=== PATIENT | female | born 1950 | race Caucasian/White ===

== ENCOUNTER → 2017-02-23 | Day surgery (SDC) | payer MEDICARE, OTHER ==
[~2017-02-23] VITALS: Ht 162.6 cm; Wt 53.5 kg
[~2017-02-23] MED LIST: ACETAMINOPHEN 325 MG TAB PO PRN; ACETYLCHOLINE OPHTH SOLN 1% 2ML As Ordered ONE; AcetaZOLAMIDE 500 MG ER CAP PO ONE; BSS with VANC/TOB/EPI for EYE CASES IR ONE; CALCTAB28 PO; CENT1TAB PO; CYCLOPENTOLATE 2% OPHTH SOLN OS ONE; HEALON DUET (HEALON 10MG/ML 0.55ML & HEALON ENDOCOAT 30MG/ML 0.85ML) As Ordered ONE; KETOROLAC 0.5% OPHTH SOLN OS ONE; LIDOCAINE 1% SDV 5 ML VIAL As Ordered ONE; LIDOCAINE 4% INJ 5 ML AMP OS ONE; LIDOCAINE 4% INJ 5 ML AMP OU ONE; LIDOCAINE W/EPINEPHRINE 1% 20ML VIAL As Ordered ONE; MIDAZOLAM INJ 2 MG/2 ML VIAL (J2250) As Ordered ONE; MOXIFLOXACIN IN BSS 0.25MG/0.25ML INTRACAMERAL INJ (OR EYE ONLY)(J2280) As Ordered ONE; OFLOXACIN 0.3 % (OCUFLOX) OPTH SOL 5ML OS ONE; PHENYLEPHRINE 2.5% OPHTH SOL 2ML OS ONE; POVIDONE-IODINE 5% OPHTH PREP SOL 30ML As Ordered ONE; PROPARACAINE 0.5% OPHTH SOL 15ML OS PRN; TRIAMCINOLONE PRES FR 40 MG/ML 1ML(TRIESENCE)(OR EYE ONLY)(J3300 PER 1MG) As Ordered ONE; TRIMETHOBENZAMIDE 300 MG CAP PO PRN; TROPICAMIDE 1% OPHTH SOLN 2 ML OS ONE; VITA100037 PO; fentaNYL 100 MCG/2 ML INJECTION (J3010) As Ordered ONE
[2017-02-23 10:10] VITALS: BP 145/93
== END | disposition home or self-care (01) ==
LOC: M SDC 07:21
PROVIDERS: ATTEND Ophthalmology
DX: H26.9 Unspecified cataract (principal)
CPT/HCPCS: 66984; 67515; J2250; J2280; J3010; J3300; V2632

== ENCOUNTER 2017-08-16 11:13 | Day surgery (SDC) | payer MEDICARE, OTHER ==
[~2017-08-16] VITALS: Ht 162.6 cm; Wt 53.5 kg
[~2017-08-16 11:13] MED LIST changes: -ACETYLCHOLINE OPHTH SOLN 1% 2ML As Ordered ONE; -AcetaZOLAMIDE 500 MG ER CAP PO ONE; +CYCLOPENTOLATE 2% OPHTH SOLN 2ML BTL OD ONE; -CYCLOPENTOLATE 2% OPHTH SOLN OS ONE; -HEALON DUET (HEALON 10MG/ML 0.55ML & HEALON ENDOCOAT 30MG/ML 0.85ML) As Ordered ONE; -KETOROLAC 0.5% OPHTH SOLN OS ONE; -LIDOCAINE 1% SDV 5 ML VIAL As Ordered ONE; +LIDOCAINE 3.5 % 1ML OPHTH TOPICAL GEL OU ONE; -LIDOCAINE 4% INJ 5 ML AMP OS ONE; -LIDOCAINE 4% INJ 5 ML AMP OU ONE; -LIDOCAINE W/EPINEPHRINE 1% 20ML VIAL As Ordered ONE; -MIDAZOLAM INJ 2 MG/2 ML VIAL (J2250) As Ordered ONE; -MOXIFLOXACIN IN BSS 0.25MG/0.25ML INTRACAMERAL INJ (OR EYE ONLY)(J2280) As Ordered ONE; +OFLOXACIN 0.3 % (OCUFLOX) OPTH SOL 5ML OD ONE; -OFLOXACIN 0.3 % (OCUFLOX) OPTH SOL 5ML OS ONE; +PHENYLEPHRINE 2.5% OPHTH SOL 2ML OD ONE; -PHENYLEPHRINE 2.5% OPHTH SOL 2ML OS ONE; -POVIDONE-IODINE 5% OPHTH PREP SOL 30ML As Ordered ONE; +PROPARACAINE 0.5% OPHTH SOL 15ML OD PRN; -PROPARACAINE 0.5% OPHTH SOL 15ML OS PRN; -TRIAMCINOLONE PRES FR 40 MG/ML 1ML(TRIESENCE)(OR EYE ONLY)(J3300 PER 1MG) As Ordered ONE; -TRIMETHOBENZAMIDE 300 MG CAP PO PRN; -TROPICAMIDE 1% OPHTH SOLN 2 ML OS ONE; +TROPICAMIDE 1% OPHTH SOLN 2ML OD ONE; -VITA100037 PO; +VITA100067 PO; -fentaNYL 100 MCG/2 ML INJECTION (J3010) As Ordered ONE
[2017-08-16] MEDS ORDERED: LR 1,000 ML IV ONE (11:30)
[2017-08-16] MEDS ORDERED: TRIAMCINOLONE PRES FR 40 MG/ML 1ML(TRIESENCE)(OR EYE ONLY)(J3300 PER 1MG) As Ordered ONE (11:52)
[2017-08-16] MEDS ORDERED: MOXIFLOXACIN IN BSS 0.25MG/0.25ML INTRACAMERAL INJ (OR EYE ONLY)(J2280) As Ordered ONE (11:52)
[2017-08-16] MEDS ORDERED: LIDOCAINE 1% SDV 5 ML VIAL As Ordered ONE (11:52)
[2017-08-16] MEDS ORDERED: POVIDONE-IODINE 5% OPHTH PREP SOL 30ML As Ordered ONE (11:52)
[2017-08-16] MEDS ORDERED: HEALON DUET (HEALON 10MG/ML 0.55ML & HEALON ENDOCOAT 30MG/ML 0.85ML) As Ordered ONE ×2 (11:53→12:09)
[2017-08-16] MEDS ORDERED: ACETYLCHOLINE OPHTH SOLN 1% 2ML (MIOCHOL-E) As Ordered ONE (12:19)
[2017-08-16] MEDS ORDERED: fentaNYL 100 MCG/2 ML INJECTION (J3010) As Ordered ONE (12:48)
[2017-08-16] MEDS ORDERED: MIDAZOLAM INJ 2 MG/2 ML VIAL (J2250) As Ordered ONE (12:48)
[2017-08-16] MEDS ORDERED: AcetaZOLAMIDE 500 MG ER CAP As Ordered ONE (12:49)
[2017-08-16 12:50] VITALS: BP 129/95
[2017-08-16] MEDS ORDERED: LR 1,000 ML IV SCH (13:00)
[2017-08-16] MEDS ORDERED: ONDANSETRON 4MG/2ML VIAL (J2405) IV PRN (13:00)
[2017-08-16] MEDS ORDERED: TRIMETHOBENZAMIDE 300 MG CAP PO PRN (13:15)
[2017-08-16] MEDS ORDERED: KETOROLAC 0.5% OPHTH SOLN OD ONE (13:15)
[2017-08-16] MEDS ORDERED: AcetaZOLAMIDE 500 MG ER CAP PO ONE (13:15)
== END 2017-08-16 13:05 | disposition home or self-care (01) ==
LOC: M SDC 11:13
PROVIDERS: ATTEND Ophthalmology
DX: H25.9 Unspecified age-related cataract (principal)
CPT/HCPCS: 66984; J2250; J2280; J3010; J3300; V2632

== ENCOUNTER 2019-11-29 09:03 | Day surgery (SDC) | payer MEDICARE, OTHER ==
[~2019-11-29] VITALS: Ht 160 cm; Wt 50.7 kg
[~2019-11-29 09:03] MED LIST changes: -ACETAMINOPHEN 325 MG TAB PO PRN; -BSS with VANC/TOB/EPI for EYE CASES IR ONE; +CALC1TAB30 PO; -CYCLOPENTOLATE 2% OPHTH SOLN 2ML BTL OD ONE; +D 202000 PO; +FISH1000 PO; -LIDOCAINE 3.5 % 1ML OPHTH TOPICAL GEL OU ONE; +NAPR220C14 PO; +NS 1,000 ML IV ONE; -OFLOXACIN 0.3 % (OCUFLOX) OPTH SOL 5ML OD ONE; -PHENYLEPHRINE 2.5% OPHTH SOL 2ML OD ONE; +PRES10CA2 PO; -PROPARACAINE 0.5% OPHTH SOL 15ML OD PRN; -TROPICAMIDE 1% OPHTH SOLN 2ML OD ONE
[2019-11-29] MEDS ORDERED: propofoL 200 MG/20 ML VIAL As Ordered ONE (09:24)
[2019-11-29] MEDS ORDERED: LIDOCAINE 2% INJ 100 MG/5 ML SDV (FOR ANES.) As Ordered ONE (09:24)
--- NOTE | 2019-11-29 11:23 | ROOR ---
Patient Name: Abbie Ramirez Procedure Date: 11/29/2019 10:58 AM Date of : 1950 Age: 69 Room: [facility] Gender: Female Note Status: Finalized Procedure: Total Colonoscopy to Cecum Indications: Screening in patient at increased risk: Colorectal cancer in father 60 or older Providers: Alex Owens MD Referring MD: GIBRAN TOMAS JR, MD Requesting Provider: Medicines: Monitored Anesthesia Care Complications: No immediate complications. Procedure: Pre-Anesthesia Assessment: - The heart rate, respiratory rate, oxygen saturations, blood pressure, adequacy of pulmonary ventilation, and response to care were monitored throughout the procedure. The Colonoscope was introduced through the anus and advanced to the cecum, identified by appendiceal orifice and ileocecal valve. The colonoscopy was performed without difficulty. The patient tolerated the procedure well. The quality of the bowel preparation was excellent. Findings: The perianal and digital rectal examinations were normal. Non-bleeding internal hemorrhoids were found during retroflexion. The hemorrhoids were small and Grade I (internal hemorrhoids that do not prolapse). Multiple small and large-mouthed diverticula were found in the recto-sigmoid colon, sigmoid colon and descending colon. The exam was otherwise without abnormality on direct and retroflexion views. Impression: - Non-bleeding internal hemorrhoids. - Diverticulosis in the recto-sigmoid colon, in the sigmoid colon and in the descending colon. - The examination was otherwise normal on direct and retroflexion views. - No specimens collected. - The exam was otherwise normal to the cecum. Recommendation: - Patient has a contact number available for emergencies. The signs and symptoms of potential delayed complications were discussed with the patient. Return to normal activities tomorrow. Written discharge instructions were provided to the patient. - High fiber diet. - Discharge patient to home. - Continue present medications. - Repeat colonoscopy for symptoms only. - Return to referring physician. - The findings and recommendations were discussed with the patient's family. Alex Owens MD Alex Owens MD 11/29/2019 11:23:16 AM Electronically signed by Alex Owens MD Number of Addenda: 0 Note Initiated On: 11/29/2019 10:58 AM Estimated Blood Loss: Estimated blood loss: none.
[2019-11-29 11:40] VITALS: BP 120/72
== END 2019-11-29 11:52 | disposition home or self-care (01) ==
LOC: M OPP 09:03
PROVIDERS: ATTEND Internal Medicine Gastroenterology
DX: Z12.11 Encounter for screening for malignant neoplasm of colon (principal); Z80.0 Family history of malignant neoplasm of digestive organs; K64.0 First degree hemorrhoids; K57.30 Diverticulosis of large intestine without perforation or abscess without bleeding

== ENCOUNTER → 2021-03-19 | Outpatient (CLI) | payer MEDICARE, OTHER ==
[~2021-03-19] MED LIST changes: -NS 1,000 ML IV ONE
--- NOTE | 2021-03-19 12:36 | REP ---
INDICATION: PAIN COMPARISON: None. TECHNIQUE: 6 views right knee including standing AP view. FINDINGS: There is no evidence of acute fracture, dislocation, or intrinsic bone disease.There is no significant degenerative joint space narrowing. There is mild subchondral sclerosis and cystic change in the anterior aspect of the lateral femoral condyle. There is no radiographic evidence of a joint effusion. IMPRESSION: There is mild subchondral sclerosis and cystic change in the anterior aspect of the lateral femoral condyle. Otherwise negative right knee series. <Electronically signed by Bakari Acosta > 03/19/21 [id number]
== END ==
LOC: M WUC 11:22
PROVIDERS: ATTEND Nurse Practitioner Adult Health
DX: M25.561 Pain in right knee (principal); M85.861 Other specified disorders of bone density and structure, right lower leg

== ENCOUNTER → 2021-11-03 | Outpatient (CLI) | payer MEDICARE, OTHER | LOC: M WHC 12:58 | PROVIDERS: ATTEND Internal Medicine | DX: Z12.31 Encounter for screening mammogram for malignant neoplasm of breast (principal) ==

== ENCOUNTER → 2022-11-04 | Outpatient (CLI) | payer MEDICARE, OTHER | LOC: M WHC 08:56 | PROVIDERS: ATTEND Internal Medicine | DX: Z12.31 Encounter for screening mammogram for malignant neoplasm of breast (principal); M85.851 Other specified disorders of bone density and structure, right thigh; M85.852 Other specified disorders of bone density and structure, left thigh ==

== ENCOUNTER → 2023-11-05 | Outpatient (CLI) | payer MEDICARE, OTHER | LOC: M WHC 09:46 | PROVIDERS: ATTEND Internal Medicine | DX: Z12.31 Encounter for screening mammogram for malignant neoplasm of breast (principal) ==

== ENCOUNTER → 2024-11-06 | Outpatient (CLI) | payer MEDICARE, OTHER | LOC: M WHC 08:58 | PROVIDERS: ATTEND Internal Medicine | DX: Z12.31 Encounter for screening mammogram for malignant neoplasm of breast (principal); M81.0 Age-related osteoporosis without current pathological fracture ==

== ENCOUNTER → 2024-11-27 | Outpatient (CLI) | payer MEDICARE, OTHER | LOC: M WHC 10:47 | PROVIDERS: ATTEND Internal Medicine | DX: R92.2 Inconclusive mammogram (principal); R92.333 Mammographic heterogeneous density, bilateral breasts | CPT/HCPCS: 77065; G0279 ==

== ENCOUNTER → 2025-09-04 | Outpatient (REF) | payer MEDICARE, OTHER ==
[2025-09-04 13:09] LABS: VITAMIN B12 LEVEL 1070 PG/ML (211-911)
== END ==
LOC: M LAB REF 11:49
DX: G30.0 Alzheimer's disease with early onset (principal); F02.A0 Dementia in other diseases classified elsewhere, mild, without behavioral disturbance, psychotic disturbance, mood disturbance, and anxiety